=== PATIENT | male | born 1945 | race African-American/Black ===

== ENCOUNTER 2020-09-10 14:01 | Inpatient (IN) ==
[2020-09-10] MEDS ORDERED: cefTRIAXone 1,000 MG in SODIUM CHLORIDE 0.9% 100 ML IV STA (17:52)
[2020-09-10 18:40] LABS: Basophils % 0.2 % (0.0-0.8); Hematocrit 37.7 VOL% (42.0-52.0); Hemoglobin 11.9 GM/DL (14.0-18.0); Immature Granulocytes % 0.8 %; Immature Granulocytes Absolute 0.05 #; Lymphocytes # 0.6 10*3/uL (1.4-4.0); Lymphocytes % 8.5 % (21.2-54.2); Mean Corpuscular HGB Conc 31.6 GM/DL (32-36); Mean Corpuscular Volume 80.6 FL (87-102); Monocytes % 3.2 % (1.7-12.7); Neutrophils % 87.3 % (38.7-73.9); Platelet Count 271 T/CUMM (130-400); Red Blood Count 4.68 MC/CUMM (3.8-5.5); Red Cell Distribution Width 13.2 % (9.3-17.3); White Blood Count 6.5 T/CUMM (4-12)
[2020-09-10 19:02] LABS: Albumin 3.5 G/DL (3.4-5.0); Bilirubin,Total 1.6 MG/DL (0.2-1.0); Calcium 8.3 MG/DL (8.5-10.1); Osmolality,Calculated 274.8 MOS/KG (273-304); PT Patient Result 10.3 SECS (9.8-11.9); Total Protein 7.5 G/DL (6.4-8.3)
[2020-09-10] MEDS ORDERED: DEXAMETHASONE 4 MG/1 ML VIAL IV STA (19:19)
[2020-09-10] MEDS ORDERED: hydrALAZINE 20 MG/1 ML VIAL IV STA (19:36)
[2020-09-10 20:37] LABS: Ferritin 1770.4 ng/ml (26-388)
[2020-09-10] MEDS ORDERED: diphenhydrAMINE CAP 25 MG CAPSULE PO STA (21:04)
[2020-09-10] MEDS ORDERED: DEXTROSE 50% 25 GM/50 ML VIAL IV PRN (21:27)
[2020-09-10] MEDS ORDERED: hydrALAZINE 20 MG/1 ML VIAL IV PRN (21:27)
[2020-09-10] MEDS ORDERED: ACETAMINOPHEN 325 MG TABLET PO PRN (21:27)
[2020-09-10] MEDS ORDERED: GLUCAGON 1 MG VIAL IM PRN (21:27)
[2020-09-10] MEDS ORDERED: ALUMINUM/MAGNES/SIMETH MAX STR 30 ML UDCUP PO PRN (21:27)
[2020-09-10] MEDS ORDERED: ONDANSETRON 4 MG/2 ML VIAL IV PRN (21:27)
[2020-09-10] MEDS ORDERED: diphenhydrAMINE CAP 25 MG CAPSULE PO PRN (21:27)
[2020-09-10] MEDS ORDERED: SODIUM CHLORIDE 0.9% 1,000 ML IV SCH (21:30)
[2020-09-10 21:50] LABS: ABG Base Excess 2.8 MMOL/L (-2.5-2.5); ABG HCO3 26.8 MMOL/L (20-26); ABG Oxygen Saturation 93.2 % (95-100); ABG PH 7.454 (7.35-7.45); ABG PO2 67.2 MM HG (80-95); ABG TCO2 23.8 MMOL/L (23-27)
[2020-09-10] MEDS: DOXYCYCLINE HYCLATE INJ 100 MG in SODIUM CHLORIDE 0.9% 100 ML IV SCH (23:20)
[2020-09-10] MEDS: ENOXAPARIN 40 MG/0.4 ML SYRINGE SUBCUT SCH (23:20)
[2020-09-11 05:08] LABS: Basophils % 0.1 % (0.0-0.8); Hematocrit 38.8 VOL% (42.0-52.0); Hemoglobin 12.4 GM/DL (14.0-18.0); Immature Granulocytes % 0.8 %; Immature Granulocytes Absolute 0.08 #; Lymphocytes # 0.6 10*3/uL (1.4-4.0); Mean Corpuscular Volume 79.5 FL (87-102); Monocytes % 2.1 % (1.7-12.7); Platelet Count 312 T/CUMM (130-400); Red Blood Count 4.88 MC/CUMM (3.8-5.5); Red Cell Distribution Width 13.1 % (9.3-17.3); White Blood Count 9.7 T/CUMM (4-12)
[2020-09-11 05:29] LABS: Band Neutrophils 1 % (0-10); Lymphocytes 8 % (20-55); Platelet Estimate Adequate; Segmented Neutrophils 89 % (50-85); Total Cells Counted 100
[2020-09-11 05:42] LABS: Albumin 2.8 G/DL (3.4-5.0); Bilirubin,Total 1.8 MG/DL (0.2-1.0); Calcium 8.4 MG/DL (8.5-10.1); Osmolality,Calculated 280.8 MOS/KG (273-304); Total Protein 7.6 G/DL (6.4-8.3)
[2020-09-11 08:12] LABS: ABG Base Excess 1.7 MMOL/L (-2.5-2.5); ABG HCO3 25.6 MMOL/L (20-26); ABG Oxygen Saturation 97.5 % (95-100); ABG PCO2 37.9 MM HG (35-48); ABG PH 7.448 (7.35-7.45); ABG PO2 96.6 MM HG (80-95); ABG TCO2 26.8 MMOL/L (23-27)
[2020-09-11] MEDS: DEXAMETHASONE 4 MG/1 ML VIAL IV SCH ×2 (08:30→20:33)
[2020-09-11] MEDS: DOXYCYCLINE HYCLATE INJ 100 MG in SODIUM CHLORIDE 0.9% 100 ML IV SCH ×2 (11:45→21:44)
[2020-09-11] MEDS ORDERED: lisinopriL 20 MG TABLET PO ONE (12:17)
[2020-09-11] MEDS: hydrALAZINE 25 MG TABLET PO SCH ×2 (16:55→20:34)
[2020-09-11] MEDS: cefTRIAXone 1,000 MG in SYRINGE 1 EACH IV SCH (20:33)
[2020-09-11] MEDS: ENOXAPARIN 40 MG/0.4 ML SYRINGE SUBCUT SCH (21:43)
[2020-09-12 04:08] LABS: ABG Base Excess 2.3 MMOL/L (-2.5-2.5); ABG HCO3 25.5 MMOL/L (20-26); ABG Oxygen Saturation 88.4 % (95-100); ABG PH 7.481 (7.35-7.45); ABG PO2 55.1 MM HG (80-95); ABG TCO2 26.6 MMOL/L (23-27); Allen Test Positive; Pt O2 Delivery Device Other
[2020-09-12 04:28] LABS: Basophils % 0.1 % (0.0-0.8); Hematocrit 39.5 VOL% (42.0-52.0); Hemoglobin 12.7 GM/DL (14.0-18.0); Immature Granulocytes Absolute 0.13 #; Lymphocytes # 0.7 10*3/uL (1.4-4.0); Lymphocytes % 5.2 % (21.2-54.2); Mean Corpuscular HGB Conc 32.2 GM/DL (32-36); Mean Corpuscular Volume 80.3 FL (87-102); Mean Platelet Volume 9.8 FL (9.6-12.0); Monocytes % 3.7 % (1.7-12.7); Platelet Count 336 T/CUMM (130-400); Red Blood Count 4.92 MC/CUMM (3.8-5.5); Red Cell Distribution Width 13.2 % (9.3-17.3); White Blood Count 13.5 T/CUMM (4-12)
[2020-09-12 04:59] LABS: Albumin 2.4 G/DL (3.4-5.0); Bilirubin,Total 1.8 MG/DL (0.2-1.0); Calcium 8.4 MG/DL (8.5-10.1); Ferritin 1848.5 ng/ml (26-388); Osmolality,Calculated 274.1 MOS/KG (273-304); Total Protein 7.2 G/DL (6.4-8.3)
[2020-09-12 06:21] LABS: Sedimentation Rate-Westergren 38 MM/HR (0-20)
[2020-09-12] MEDS: DEXAMETHASONE 4 MG/1 ML VIAL IV SCH ×3 (08:12→23:57)
[2020-09-12] MEDS: hydrALAZINE 25 MG TABLET PO SCH ×3 (08:13→21:10)
[2020-09-12] MEDS: ASPIRIN EC 81 MG TABLET PO SCH (08:13)
[2020-09-12] MEDS: lisinopriL 20 MG TABLET PO SCH (08:13)
[2020-09-12] MEDS ORDERED: FUROSEMIDE 40 MG/4 ML VIAL IV ONE (08:48)
[2020-09-12] MEDS ORDERED: REMDESIVIR 200 MG in SODIUM CHLORIDE 0.9% 210 ML IV ONE (10:00)
[2020-09-12 11:06] LABS: ABG Base Excess 2.1 MMOL/L (-2.5-2.5); ABG HCO3 25.4 MMOL/L (20-26); ABG PCO2 35.4 MM HG (35-48); ABG PH 7.474 (7.35-7.45); ABG PO2 61.3 MM HG (80-95); ABG TCO2 26.5 MMOL/L (23-27)
[2020-09-12] MEDS: carvediloL 3.125 MG TABLET PO SCH ×2 (11:12→21:10)
[2020-09-12] MEDS: DOXYCYCLINE HYCLATE INJ 100 MG in SODIUM CHLORIDE 0.9% 100 ML IV SCH ×3 (11:13→23:59)
[2020-09-12] MEDS: ENOXAPARIN 40 MG/0.4 ML SYRINGE SUBCUT SCH ×3 (11:13→21:12)
[2020-09-12] MEDS ORDERED: SODIUM CHLORIDE 0.9% 1,000 ML IV PRN (14:10)
[2020-09-12] MEDS: cefTRIAXone 1,000 MG in SYRINGE 1 EACH IV SCH ×2 (21:11→23:58)
[2020-09-13 03:55] LABS: ABG Base Excess 4.5 MMOL/L (-2.5-2.5); ABG HCO3 28.2 MMOL/L (20-26); ABG Oxygen Saturation 88.7 % (95-100); ABG PCO2 38.5 MM HG (35-48); ABG PH 7.473 (7.35-7.45); ABG PO2 55.7 MM HG (80-95); ABG TCO2 24.7 MMOL/L (23-27); Allen Test Positive; Pt O2 Delivery Device Other
[2020-09-13 05:23] LABS: Basophils % 0.1 % (0.0-0.8); Hematocrit 34.3 VOL% (42.0-52.0); Immature Granulocytes % 0.8 %; Immature Granulocytes Absolute 0.11 #; Lymphocytes # 0.6 10*3/uL (1.4-4.0); Lymphocytes % 4.5 % (21.2-54.2); Mean Corpuscular HGB Conc 32.1 GM/DL (32-36); Mean Platelet Volume 9.6 FL (9.6-12.0); NRBC # 0.02 10*3/uL; Neutrophils % 90.6 % (38.7-73.9); Platelet Count 322 T/CUMM (130-400); Red Blood Count 4.29 MC/CUMM (3.8-5.5); Red Cell Distribution Width 13.2 % (9.3-17.3); White Blood Count 14.2 T/CUMM (4-12)
[2020-09-13 05:46] LABS: Band Neutrophils 1 % (0-10); Eosinophils 1 % (0-10); Lymphocytes 8 % (20-55); Platelet Estimate Adequate; Segmented Neutrophils 89 % (50-85); Total Cells Counted 100
[2020-09-13 05:47] LABS: Hypochromasia 1+; Microcytosis 1+; Ovalocytes Slight
[2020-09-13 06:18] LABS: Alanine Aminotransferase 42 U/L (16-61); Albumin 2.4 G/DL (3.4-5.0); Alkaline Phosphatase 96 U/L (45-117); Aspartate Amino Transferase 76 U/L (0-37); Blood Urea Nitrogen 24 MG/DL (7-18); Calcium 7.4 MG/DL (8.5-10.1); Estimated Glom Filtration Rate 98 ML/MIN; Glucose 152 MG/DL (74-106); Osmolality,Calculated 279.8 MOS/KG (273-304); Total Protein 6.1 G/DL (6.4-8.3)
[2020-09-13 07:18] LABS: Sedimentation Rate-Westergren 67 MM/HR (0-20)
[2020-09-13] MEDS: ASPIRIN EC 81 MG TABLET PO SCH (08:11)
[2020-09-13] MEDS: lisinopriL 20 MG TABLET PO SCH (08:11)
[2020-09-13] MEDS: DEXAMETHASONE 4 MG/1 ML VIAL IV SCH ×2 (08:11→20:31)
[2020-09-13] MEDS: ENOXAPARIN 40 MG/0.4 ML SYRINGE SUBCUT SCH ×2 (08:11→20:31)
[2020-09-13] MEDS: hydrALAZINE 25 MG TABLET PO SCH ×3 (08:11→20:31)
[2020-09-13] MEDS: carvediloL 3.125 MG TABLET PO SCH ×2 (08:11→20:31)
[2020-09-13] MEDS: REMDESIVIR 100 MG in SODIUM CHLORIDE 0.9% 230 ML IV SCH (09:45)
[2020-09-13] MEDS: DOXYCYCLINE HYCLATE INJ 100 MG in SODIUM CHLORIDE 0.9% 100 ML IV SCH ×2 (11:47→22:38)
[2020-09-13] MEDS: cefTRIAXone 1,000 MG in SYRINGE 1 EACH IV SCH (20:31)
[2020-09-14 04:37] LABS: ABG Base Excess 3.3 MMOL/L (-2.5-2.5); ABG HCO3 27.3 MMOL/L (20-26); ABG Oxygen Saturation 95.4 % (95-100); ABG PCO2 40.7 MM HG (35-48); ABG PH 7.441 (7.35-7.45); ABG PO2 77.3 MM HG (80-95); ABG TCO2 24.9 MMOL/L (23-27); Allen Test Positive; Pt O2 Delivery Device Other
[2020-09-14 04:47] LABS: Basophils % 0.2 % (0.0-0.8); Hematocrit 32.3 VOL% (42.0-52.0); Hemoglobin 10.5 GM/DL (14.0-18.0); Immature Granulocytes % 1.6 %; Immature Granulocytes Absolute 0.28 #; Lymphocytes # 0.9 10*3/uL (1.4-4.0); Lymphocytes % 4.8 % (21.2-54.2); Mean Corpuscular HGB Conc 32.5 GM/DL (32-36); Mean Corpuscular Volume 79.4 FL (87-102); Mean Platelet Volume 10.2 FL (9.6-12.0); Monocytes % 4.3 % (1.7-12.7); Neutrophils % 89.1 % (38.7-73.9); Platelet Count 365 T/CUMM (130-400); Red Blood Count 4.07 MC/CUMM (3.8-5.5); White Blood Count 17.9 T/CUMM (4-12)
[2020-09-14 05:17] LABS: Albumin 2.4 G/DL (3.4-5.0); Bilirubin,Total 1.4 MG/DL (0.2-1.0); Calcium 7.8 MG/DL (8.5-10.1); Ferritin 963.1 ng/ml (26-388); Total Protein 6.5 G/DL (6.4-8.3)
[2020-09-14 05:20] LABS: Band Neutrophils 1 % (0-10); Lymphocytes 5 % (20-55); Segmented Neutrophils 92 % (50-85); Total Cells Counted 100
[2020-09-14 05:21] LABS: Hypochromasia 1+; Microcytosis 1+; Ovalocytes Slight; Target Cells Slight
[2020-09-14 05:22] LABS: Platelet Estimate Normal
[2020-09-14 07:27] VITALS: BP 147/74
[2020-09-14 07:47] LABS: Sedimentation Rate-Westergren 54 MM/HR (0-20)
[2020-09-14] MEDS: ASPIRIN EC 81 MG TABLET PO SCH (08:46)
[2020-09-14] MEDS: hydrALAZINE 25 MG TABLET PO SCH ×3 (08:46→20:29)
[2020-09-14] MEDS: lisinopriL 20 MG TABLET PO SCH (08:46)
[2020-09-14] MEDS: carvediloL 3.125 MG TABLET PO SCH ×2 (08:47→20:29)
[2020-09-14] MEDS: ENOXAPARIN 80 MG/0.8 ML SYRINGE SUBCUT SCH ×2 (08:47→20:28)
[2020-09-14] MEDS: DEXAMETHASONE 4 MG/1 ML VIAL IV SCH ×2 (08:48→20:29)
[2020-09-14] MEDS: FAMOTIDINE 20 MG TABLET PO SCH ×2 (08:48→20:29)
[2020-09-14] MEDS: REMDESIVIR 100 MG in SODIUM CHLORIDE 0.9% 230 ML IV SCH (09:54)
[2020-09-14] MEDS: DOXYCYCLINE HYCLATE INJ 100 MG in SODIUM CHLORIDE 0.9% 100 ML IV SCH ×2 (11:11→21:25)
[2020-09-14] MEDS: cefTRIAXone 1,000 MG in SYRINGE 1 EACH IV SCH (20:28)
[2020-09-15 04:50] LABS: Allen Test Positive; Pt O2 Delivery Device Other
[2020-09-15 04:51] LABS: ABG Base Excess 1.6 MMOL/L (-2.5-2.5); ABG HCO3 25.2 MMOL/L (20-26); ABG Oxygen Saturation 96.1 % (95-100); ABG PCO2 36.4 MM HG (35-48); ABG PH 7.459 (7.35-7.45); ABG PO2 83.3 MM HG (80-95); ABG TCO2 26.4 MMOL/L (23-27)
[2020-09-15 06:22] LABS: Basophils % 0.2 % (0.0-0.8); Eosinophils % 0.2 % (0.00-10.9); Hematocrit 33.3 VOL% (42.0-52.0); Hemoglobin 10.6 GM/DL (14.0-18.0); Immature Granulocytes % 4.2 %; Immature Granulocytes Absolute 0.87 #; Lymphocytes # 1.1 10*3/uL (1.4-4.0); Lymphocytes % 5.2 % (21.2-54.2); Mean Corpuscular HGB Conc 31.8 GM/DL (32-36); Mean Corpuscular Volume 79.3 FL (87-102); Mean Platelet Volume 9.9 FL (9.6-12.0); Monocytes % 2.5 % (1.7-12.7); Neutrophils % 87.7 % (38.7-73.9); Platelet Count 401 T/CUMM (130-400); Red Cell Distribution Width 13.1 % (9.3-17.3); White Blood Count 20.9 T/CUMM (4-12)
[2020-09-15 06:59] LABS: Alanine Aminotransferase 55 U/L (16-61); Albumin 2.4 G/DL (3.4-5.0); Alkaline Phosphatase 135 U/L (45-117); Aspartate Amino Transferase 53 U/L (0-37); Blood Urea Nitrogen 19 MG/DL (7-18); Calcium 7.9 MG/DL (8.5-10.1); Estimated Glom Filtration Rate 113 ML/MIN; Glucose 191 MG/DL (74-106); Osmolality,Calculated 272.4 MOS/KG (273-304); Total Protein 6.5 G/DL (6.4-8.3)
[2020-09-15 07:00] LABS: Band Neutrophils 2 % (0-10); Lymphocytes 7 % (20-55); Segmented Neutrophils 88 % (50-85); Total Cells Counted 100
[2020-09-15 07:01] LABS: Hypochromasia 2+; Microcytosis 1+; Ovalocytes Slight; Target Cells Slight
[2020-09-15 07:02] LABS: Platelet Estimate Increased
[2020-09-15 07:25] LABS: Sedimentation Rate-Westergren 29 MM/HR (0-20)
[2020-09-15] MEDS: ENOXAPARIN 80 MG/0.8 ML SYRINGE SUBCUT SCH ×2 (08:05→20:50)
[2020-09-15] MEDS: DEXAMETHASONE 4 MG/1 ML VIAL IV SCH ×2 (08:05→20:49)
[2020-09-15] MEDS: ASPIRIN EC 81 MG TABLET PO SCH (08:06)
[2020-09-15] MEDS: hydrALAZINE 25 MG TABLET PO SCH ×3 (08:06→20:50)
[2020-09-15] MEDS: FAMOTIDINE 20 MG TABLET PO SCH ×2 (08:06→20:50)
[2020-09-15] MEDS: lisinopriL 20 MG TABLET PO SCH (08:06)
[2020-09-15] MEDS: carvediloL 3.125 MG TABLET PO SCH ×2 (08:06→20:50)
[2020-09-15] MEDS: REMDESIVIR 100 MG in SODIUM CHLORIDE 0.9% 230 ML IV SCH (09:44)
[2020-09-15] MEDS: DOXYCYCLINE HYCLATE INJ 100 MG in SODIUM CHLORIDE 0.9% 100 ML IV SCH ×2 (11:11→22:50)
[2020-09-15] MEDS ORDERED: SODIUM CHLORIDE 0.9% 500 ML IV ONE (13:28)
[2020-09-15] MEDS: cefTRIAXone 1,000 MG in SYRINGE 1 EACH IV SCH (20:49)
[2020-09-15 23:31] LABS: Specimen Source SPUTUM
[2020-09-16 04:24] LABS: Allen Test Positive; Pt O2 Delivery Device Other
[2020-09-16 04:25] LABS: ABG Base Excess 2.7 MMOL/L (-2.5-2.5); ABG HCO3 26.7 MMOL/L (20-26); ABG Oxygen Saturation 92.8 % (95-100); ABG PCO2 35.4 MM HG (35-48); ABG PH 7.475 (7.35-7.45); ABG TCO2 23.4 MMOL/L (23-27)
[2020-09-16 04:58] LABS: Basophils % 0.2 % (0.0-0.8); Eosinophils % 0.1 % (0.00-10.9); Hematocrit 32.8 VOL% (42.0-52.0); Hemoglobin 10.8 GM/DL (14.0-18.0); Immature Granulocytes % 3.8 %; Immature Granulocytes Absolute 0.86 #; Lymphocytes % 4.5 % (21.2-54.2); Mean Corpuscular HGB Conc 32.9 GM/DL (32-36); Mean Corpuscular Volume 76.8 FL (87-102); Mean Platelet Volume 10.1 FL (9.6-12.0); Monocytes % 2.5 % (1.7-12.7); Neutrophils % 88.9 % (38.7-73.9); Platelet Count 436 T/CUMM (130-400); Red Blood Count 4.27 MC/CUMM (3.8-5.5); Red Cell Distribution Width 13.2 % (9.3-17.3); White Blood Count 22.9 T/CUMM (4-12)
[2020-09-16 05:17] LABS: Albumin 2.2 G/DL (3.4-5.0); Bilirubin,Total 1.8 MG/DL (0.2-1.0); Calcium 7.9 MG/DL (8.5-10.1); Ferritin 963.7 ng/ml (26-388); Osmolality,Calculated 269.5 MOS/KG (273-304); Total Protein 6.6 G/DL (6.4-8.3)
[2020-09-16 05:20] LABS: Band Neutrophils 1 % (0-10); Lymphocytes 4 % (20-55); Platelet Estimate Increased; Segmented Neutrophils 90 % (50-85); Total Cells Counted 100
[2020-09-16 05:21] LABS: Hypochromasia Slight; Microcytosis Slight
[2020-09-16 06:09] LABS: Sedimentation Rate-Westergren 53 MM/HR (0-20)
[2020-09-16] MEDS: carvediloL 3.125 MG TABLET PO SCH ×2 (09:29→21:08)
[2020-09-16] MEDS: hydrALAZINE 25 MG TABLET PO SCH ×3 (09:29→21:08)
[2020-09-16] MEDS: DEXAMETHASONE 4 MG/1 ML VIAL IV SCH (09:29)
[2020-09-16] MEDS: lisinopriL 20 MG TABLET PO SCH (09:29)
[2020-09-16] MEDS: FAMOTIDINE 20 MG TABLET PO SCH ×2 (09:29→21:07)
[2020-09-16] MEDS: ENOXAPARIN 80 MG/0.8 ML SYRINGE SUBCUT SCH ×2 (09:29→21:08)
[2020-09-16] MEDS: ASPIRIN EC 81 MG TABLET PO SCH (09:29)
[2020-09-16] MEDS ORDERED: FUROSEMIDE 40 MG/4 ML VIAL IV ONE (09:35)
[2020-09-16] MEDS: REMDESIVIR 100 MG in SODIUM CHLORIDE 0.9% 230 ML IV SCH (09:52)
[2020-09-16] MEDS: DOXYCYCLINE HYCLATE INJ 100 MG in SODIUM CHLORIDE 0.9% 100 ML IV SCH (11:30)
[2020-09-16] MEDS: cefTRIAXone 1,000 MG in SYRINGE 1 EACH IV SCH (21:24)
[2020-09-17] MEDS: DOXYCYCLINE HYCLATE INJ 100 MG in SODIUM CHLORIDE 0.9% 100 ML IV SCH ×3 (00:44→21:12)
[2020-09-17 04:28] LABS: Basophils % 0.1 % (0.0-0.8); Eosinophils # 0.1 10*3/uL (0.0-0.87); Eosinophils % 0.5 % (0.00-10.9); Hematocrit 32.1 VOL% (42.0-52.0); Hemoglobin 10.4 GM/DL (14.0-18.0); Immature Granulocytes % 3.8 %; Immature Granulocytes Absolute 0.92 #; Lymphocytes # 1.1 10*3/uL (1.4-4.0); Lymphocytes % 4.4 % (21.2-54.2); Mean Corpuscular HGB Conc 32.4 GM/DL (32-36); Mean Corpuscular Volume 76.8 FL (87-102); Mean Platelet Volume 10.3 FL (9.6-12.0); Monocytes % 2.3 % (1.7-12.7); Neutrophils % 88.9 % (38.7-73.9); Platelet Count 502 T/CUMM (130-400); Red Blood Count 4.18 MC/CUMM (3.8-5.5); White Blood Count 23.9 T/CUMM (4-12)
[2020-09-17 04:53] LABS: Band Neutrophils 2 % (0-10); Lymphocytes 8 % (20-55); Platelet Estimate Increased; Segmented Neutrophils 89 % (50-85); Total Cells Counted 100
[2020-09-17 04:54] LABS: Burr Cells Slight; Hypochromasia 1+
[2020-09-17 05:05] LABS: Albumin 2.1 G/DL (3.4-5.0); Bilirubin,Total 2.1 MG/DL (0.2-1.0); Calcium 7.6 MG/DL (8.5-10.1); Ferritin 937.3 ng/ml (26-388); Osmolality,Calculated 268.8 MOS/KG (273-304); Total Protein 6.5 G/DL (6.4-8.3)
[2020-09-17 05:31] LABS: Sedimentation Rate-Westergren 38 MM/HR (0-20)
[2020-09-17] MEDS: ENOXAPARIN 80 MG/0.8 ML SYRINGE SUBCUT SCH ×2 (08:11→21:12)
[2020-09-17] MEDS: carvediloL 3.125 MG TABLET PO SCH ×2 (08:12→21:12)
[2020-09-17] MEDS: ASPIRIN EC 81 MG TABLET PO SCH (08:12)
[2020-09-17] MEDS: lisinopriL 20 MG TABLET PO SCH (08:12)
[2020-09-17] MEDS: DEXAMETHASONE 4 MG/1 ML VIAL IV SCH (08:12)
[2020-09-17] MEDS: FAMOTIDINE 20 MG TABLET PO SCH ×2 (08:12→21:12)
[2020-09-17] MEDS: hydrALAZINE 25 MG TABLET PO SCH ×3 (08:12→21:12)
[2020-09-17] MEDS ORDERED: FUROSEMIDE 40 MG/4 ML VIAL IV ONE (10:21)
[2020-09-17 14:34] LABS: Bilirubin,Urine Negative (Negative); Blood, Urine Negative (Negative); Glucose,Urine (UA) 50 mg/dL (Negative); Ketones,Urine Negative (Negative); Nitrite,Urine Negative (Negative); Protein,Urine Negative; RBC,Urine 1 /HPF (0-4); Urine Appearance CLEAR (Clear); Urine Color Yellow (Yellow); Urine Specific Gravity 1.008 (1.001-1.035); Urine Urobilinogen < 2.0 EU/DL (0.2-1.0)
[2020-09-17 15:17] LABS: ABG Base Excess 0.9 MMOL/L (-2.5-2.5); ABG HCO3 25.2 MMOL/L (20-26); ABG Oxygen Saturation 93.5 % (95-100); ABG PCO2 34.3 MM HG (35-48); ABG PH 7.459 (7.35-7.45); ABG PO2 69.5 MM HG (80-95); ABG TCO2 21.9 MMOL/L (23-27); Allen Test Positive; Pt O2 Delivery Device Other
[2020-09-17] MEDS: SODIUM CHLORIDE 1 GM TABLET PO SCH (21:12)
[2020-09-17] MEDS: cefTRIAXone 1,000 MG in SYRINGE 1 EACH IV SCH (21:12)
[2020-09-18 03:55] LABS: Basophils % 0.1 % (0.0-0.8); Eosinophils % 0.1 % (0.00-10.9); Hematocrit 32.9 VOL% (42.0-52.0); Hemoglobin 10.9 GM/DL (14.0-18.0); Immature Granulocytes % 2.2 %; Immature Granulocytes Absolute 0.44 #; Lymphocytes # 0.9 10*3/uL (1.4-4.0); Lymphocytes % 4.3 % (21.2-54.2); Mean Corpuscular HGB Conc 33.1 GM/DL (32-36); Mean Platelet Volume 10.3 FL (9.6-12.0); Monocytes % 3.4 % (1.7-12.7); Neutrophils % 89.9 % (38.7-73.9); Platelet Count 526 T/CUMM (130-400); Red Blood Count 4.27 MC/CUMM (3.8-5.5); Red Cell Distribution Width 13.1 % (9.3-17.3); White Blood Count 20.4 T/CUMM (4-12)
[2020-09-18 04:22] LABS: Lymphocytes 5 % (20-55); Platelet Estimate Increased; Segmented Neutrophils 90 % (50-85); Total Cells Counted 100
[2020-09-18 04:23] LABS: Hypochromasia Slight; Microcytosis Slight
[2020-09-18 04:31] LABS: Calcium 7.6 MG/DL (8.5-10.1); Ferritin 1081.4 ng/ml (26-388); Osmolality,Calculated 266.8 MOS/KG (273-304)
[2020-09-18 05:50] LABS: ABG Base Excess 2.1 MMOL/L (-2.5-2.5); ABG HCO3 26.2 MMOL/L (20-26); ABG Oxygen Saturation 93.9 % (95-100); ABG PCO2 38.6 MM HG (35-48); ABG PO2 71.4 MM HG (80-95); ABG TCO2 23.5 MMOL/L (23-27)
[2020-09-18] MEDS: FAMOTIDINE 20 MG TABLET PO SCH ×2 (08:06→20:47)
[2020-09-18] MEDS: ASPIRIN EC 81 MG TABLET PO SCH (08:06)
[2020-09-18] MEDS: DEXAMETHASONE 4 MG/1 ML VIAL IV SCH (08:09)
[2020-09-18] MEDS: ENOXAPARIN 80 MG/0.8 ML SYRINGE SUBCUT SCH ×2 (08:09→20:47)
[2020-09-18] MEDS: lisinopriL 20 MG TABLET PO SCH (08:42)
[2020-09-18] MEDS: carvediloL 3.125 MG TABLET PO SCH ×2 (08:42→20:47)
[2020-09-18] MEDS: hydrALAZINE 25 MG TABLET PO SCH (08:44)
[2020-09-18] MEDS: SODIUM CHLORIDE 1 GM TABLET PO SCH ×2 (08:46→20:47)
[2020-09-18] MEDS: DOXYCYCLINE HYCLATE INJ 100 MG in SODIUM CHLORIDE 0.9% 100 ML IV SCH (10:58)
[2020-09-18] MEDS: INSULIN LISPRO 100 UNIT/ML SUBCUT SCH ×2 (17:45→20:47)
[2020-09-18] MEDS: ASCORBIC ACID 500 MG TABLET PO SCH (20:47)
[2020-09-19 04:18] LABS: Basophils # 0.1 10*3/uL (0.0-0.2); Basophils % 0.5 % (0.0-0.8); Eosinophils % 0.1 % (0.00-10.9); Hematocrit 32.7 VOL% (42.0-52.0); Hemoglobin 10.5 GM/DL (14.0-18.0); Immature Granulocytes Absolute 0.45 #; Lymphocytes # 0.9 10*3/uL (1.4-4.0); Mean Corpuscular HGB Conc 32.1 GM/DL (32-36); Mean Platelet Volume 10.6 FL (9.6-12.0); Monocytes % 3.8 % (1.7-12.7); NRBC # 0.03 10*3/uL; Neutrophils % 89.6 % (38.7-73.9); Platelet Count 610 T/CUMM (130-400); Red Blood Count 4.19 MC/CUMM (3.8-5.5); Red Cell Distribution Width 13.5 % (9.3-17.3)
[2020-09-19 04:47] LABS: Hypochromasia 1+; Lymphocytes 4 % (20-55); Microcytosis 1+; Ovalocytes Slight; Segmented Neutrophils 91 % (50-85); Total Cells Counted 100
[2020-09-19 04:48] LABS: Platelet Estimate Increased
[2020-09-19 04:55] LABS: Calcium 7.6 MG/DL (8.5-10.1); Ferritin 855.5 ng/ml (26-388); Osmolality,Calculated 267.7 MOS/KG (273-304)
[2020-09-19] MEDS: INSULIN LISPRO 100 UNIT/ML SUBCUT SCH ×5 (06:59→21:55)
[2020-09-19] MEDS ORDERED: FUROSEMIDE 40 MG/4 ML VIAL IV ONE (08:02)
[2020-09-19] MEDS: ASPIRIN EC 81 MG TABLET PO SCH (08:35)
[2020-09-19] MEDS: FAMOTIDINE 20 MG TABLET PO SCH ×2 (08:35→21:55)
[2020-09-19] MEDS: SODIUM CHLORIDE 1 GM TABLET PO SCH (08:36)
[2020-09-19] MEDS: CHOLECALCIFEROL 1,000 UNIT TABLET PO SCH (08:36)
[2020-09-19] MEDS: ASCORBIC ACID 500 MG TABLET PO SCH ×2 (08:36→21:55)
[2020-09-19] MEDS: carvediloL 3.125 MG TABLET PO SCH ×2 (08:36→21:55)
[2020-09-19] MEDS: ENOXAPARIN 80 MG/0.8 ML SYRINGE SUBCUT SCH ×2 (08:37→21:55)
[2020-09-19] MEDS: DEXAMETHASONE 4 MG/1 ML VIAL IV SCH (08:37)
[2020-09-19] MEDS: ZINC GLUCONATE 50 MG TABLET PO SCH (08:38)
[2020-09-19] MEDS: LEVOFLOXACIN INJ 750 MG in PREMIX 1 EACH IV SCH (12:49)
[2020-09-20 04:10] LABS: Allen Test Positive; Pt O2 Delivery Device Ventilator
[2020-09-20 04:11] LABS: ABG Base Excess 1.5 MMOL/L (-2.5-2.5); ABG HCO3 25.8 MMOL/L (20-26); ABG Oxygen Saturation 98.5 % (95-100); ABG PCO2 40.8 MM HG (35-48); ABG PH 7.415 (7.35-7.45); ABG TCO2 23.5 MMOL/L (23-27)
[2020-09-20 04:51] LABS: Basophils % 0.1 % (0.0-0.8); Eosinophils % 0.1 % (0.00-10.9); Hematocrit 34.2 VOL% (42.0-52.0); Hemoglobin 10.9 GM/DL (14.0-18.0); Immature Granulocytes % 2.3 %; Immature Granulocytes Absolute 0.52 #; Lymphocytes # 1.1 10*3/uL (1.4-4.0); Lymphocytes % 4.8 % (21.2-54.2); Mean Corpuscular HGB Conc 31.9 GM/DL (32-36); Mean Corpuscular Volume 77.7 FL (87-102); Mean Platelet Volume 10.7 FL (9.6-12.0); Monocytes % 4.5 % (1.7-12.7); Neutrophils % 88.2 % (38.7-73.9); Platelet Count 617 T/CUMM (130-400); Red Cell Distribution Width 13.5 % (9.3-17.3); White Blood Count 22.1 T/CUMM (4-12)
[2020-09-20 05:06] LABS: Calcium 7.9 MG/DL (8.5-10.1); Osmolality,Calculated 266.7 MOS/KG (273-304)
[2020-09-20 05:14] LABS: Band Neutrophils 1 % (0-10); Hypochromasia 1+; Lymphocytes 5 % (20-55); Microcytosis 1+; Ovalocytes Slight; Platelet Estimate Increased; Segmented Neutrophils 85 % (50-85); Total Cells Counted 100
[2020-09-20 05:34] LABS: Albumin 2.2 G/DL (3.4-5.0); Bilirubin,Total 1.6 MG/DL (0.2-1.0); Calcium 7.8 MG/DL (8.5-10.1); Osmolality,Calculated 266.7 MOS/KG (273-304); Total Protein 6.7 G/DL (6.4-8.3)
[2020-09-20 05:41] LABS: Ferritin 802.4 ng/ml (26-388)
[2020-09-20 05:58] LABS: % Iron Saturation 38.2 % (18-50)
[2020-09-20] MEDS: DEXAMETHASONE 4 MG/1 ML VIAL IV SCH (08:24)
[2020-09-20] MEDS: ZINC GLUCONATE 50 MG TABLET PO SCH (08:24)
[2020-09-20] MEDS: ASPIRIN EC 81 MG TABLET PO SCH (08:24)
[2020-09-20] MEDS: carvediloL 3.125 MG TABLET PO SCH ×2 (08:24→20:25)
[2020-09-20] MEDS: ASCORBIC ACID 500 MG TABLET PO SCH ×2 (08:24→20:25)
[2020-09-20] MEDS: CHOLECALCIFEROL 1,000 UNIT TABLET PO SCH (08:24)
[2020-09-20] MEDS: FAMOTIDINE 20 MG TABLET PO SCH ×2 (08:24→20:25)
[2020-09-20] MEDS: INSULIN LISPRO 100 UNIT/ML SUBCUT SCH (08:25)
[2020-09-20] MEDS: ENOXAPARIN 80 MG/0.8 ML SYRINGE SUBCUT SCH (08:25)
[2020-09-20] MEDS: LEVOFLOXACIN INJ 750 MG in PREMIX 1 EACH IV SCH (11:28)
[2020-09-20] MEDS: ENOXAPARIN 40 MG/0.4 ML SYRINGE SUBCUT SCH (20:25)
[2020-09-21 03:43] LABS: Basophils % 0.1 % (0.0-0.8); Eosinophils % 0.1 % (0.00-10.9); Hematocrit 33.9 VOL% (42.0-52.0); Immature Granulocytes % 1.9 %; Immature Granulocytes Absolute 0.46 #; Lymphocytes # 1.1 10*3/uL (1.4-4.0); Lymphocytes % 4.6 % (21.2-54.2); Mean Corpuscular HGB Conc 32.4 GM/DL (32-36); Mean Corpuscular Volume 77.2 FL (87-102); Mean Platelet Volume 10.2 FL (9.6-12.0); Monocytes % 4.6 % (1.7-12.7); NRBC # 0.02 10*3/uL; Neutrophils % 88.7 % (38.7-73.9); Platelet Count 684 T/CUMM (130-400); Red Blood Count 4.39 MC/CUMM (3.8-5.5); Red Cell Distribution Width 13.5 % (9.3-17.3); White Blood Count 24.2 T/CUMM (4-12)
[2020-09-21 04:05] LABS: Calcium 7.8 MG/DL (8.5-10.1); Osmolality,Calculated 267.8 MOS/KG (273-304)
[2020-09-21 04:23] LABS: Hypochromasia 1+; Lymphocytes 6 % (20-55); Microcytosis 1+; Ovalocytes Slight; Platelet Estimate Adequate; Segmented Neutrophils 90 % (50-85); Total Cells Counted 100
[2020-09-21] MEDS: DEXAMETHASONE 4 MG/1 ML VIAL IV SCH (08:49)
[2020-09-21] MEDS: ASPIRIN EC 81 MG TABLET PO SCH ×2 (08:50→09:21)
[2020-09-21] MEDS: CHOLECALCIFEROL 1,000 UNIT TABLET PO SCH ×2 (08:50→09:21)
[2020-09-21] MEDS: ENOXAPARIN 40 MG/0.4 ML SYRINGE SUBCUT SCH (08:50)
[2020-09-21] MEDS: carvediloL 3.125 MG TABLET PO SCH ×2 (08:50→09:21)
[2020-09-21] MEDS: ZINC GLUCONATE 50 MG TABLET PO SCH ×2 (08:50→09:21)
[2020-09-21] MEDS: FAMOTIDINE 20 MG TABLET PO SCH ×2 (08:50→09:21)
[2020-09-21] MEDS: ASCORBIC ACID 500 MG TABLET PO SCH ×2 (08:57→09:21)
[2020-09-21] MEDS: LEVOFLOXACIN INJ 750 MG in PREMIX 1 EACH IV SCH (11:47)
== END 2020-09-21 15:10 | DRG 177 ==
LOC: N.ED 14:01 → N.EDINP 21:46 → SUATTDRO 21:46 → N.CC 09-11 07:14
PROVIDERS: ADMIT Internal Medicine; ATTEND Internal Medicine